=== PATIENT | female | born 2000 | race Caucasian/White ===

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

== ENCOUNTER 2022-03-18 20:22 | Emergency (ER) | payer MEDICAID ==
[~2022-03-18] VITALS: Ht 165.1 cm; Wt 100.7 kg
[2022-03-18 20:27] VITALS: TEMP 98
--- NOTE | 2022-03-18 21:15 | NUR ---
2114 25.6 WEEKS ON EFM. C/O FAINTING AT HOME. MOVEMENT HEARD AND FELT WITH ACCELS FROM BL 120'S TO 150-160. GOOD VARIABILITY. NO CONTRACTIONS.
[2022-03-18 21:30] LABS: COLLECTION METHOD CLEAN CATCH
[2022-03-18 21:32] LABS: BASO % 0.1 % (0.0-2.0); EOS # 0.1 K/mm3 (0.0-0.7); EOS % 0.5 % (0.0-4.0); GRAN # 9.8 K/mm3 (1.4-6.5); GRAN % 78.4 % (42.2-75.2); HEMOGLOBIN 12.1 g/dl (12.5-16.0); LYMPH % 15.8 % (20.0-51.0); MEAN CELL VOLUME 83 fl (80.0-100.0); MEAN CORPUSCULAR HEMOGLOBIN 29 pg (27-31); MEAN CORPUSCULAR HGB CONC 35 g/dl (33.0-37.0); MEAN PLATELET VOLUME 11.1 fl (7.4-10.4); MONO # 0.6 K/mm3 (0.1-0.6); MONO % 4.7 % (1.7-9.3); PLATELET COUNT 192 K/mm3 (130-400); RED BLOOD COUNT 4.24 M/mm3 (4.10-5.30); REDCELL DISTRIBUTION WIDTH-CV 13.2 % (11.5-14.5)
[2022-03-18 21:45] LABS: MUCOUS Present (NOT PRESENT); URINE BACTERIA Rare /hpf (NONE SEEN); URINE RBC 0-2 /hpf (0-2)
[2022-03-18 21:57] LABS: PH 6.5 (5.0-8.5); URINE APPEARANCE Clear (CLEAR/HAZY); URINE BLOOD Negative (NEGATIVE); URINE COLOR Yellow (YELLOW); URINE GLUCOSE Negative (NEGATIVE); URINE KETONE Negative (NEGATIVE); URINE NITRATE Negative (NEGATIVE); URINE PROTEIN(semi-quant) Negative (NEGATIVE); URINE UROBILINOGEN 0.2 E.U/dL (0.2-1.0)
[2022-03-18 22:12] LABS: ALANINE AMINOTRANSFERASE 6 U/L (0-55); ALBUMIN 2.7 gm/dL (3.5-5.0); ALKALINE PHOSPHATASE 83 U/L (40-150); ANION GAP 10 mmol/L (7-16); AST,SGOT 12 U/L (5-34); BILIRUBIN,TOTAL 0.2 mg/dL (0.2-1.2); BLOOD UREA NITROGEN 6 mg/dL (7-19); CALCIUM 8.8 mg/dL (8.4-10.2); CARBON DIOXIDE 21 mmol/L (22-29); CHLORIDE 107 mmol/L (98-107); CREATININE, serum 0.59 mg/dL (0.57-1.11); GLUCOSE 89 mg/dL (70-99); POTASSIUM 3.9 mmol/L (3.5-4.5); SODIUM 138 mmol/L (136-145); TOTAL PROTEIN 6.5 gm/dL (6.2-8.1)
[2022-03-18 22:32] LABS: TSH w REFLEX 1.528 uIU/mL (0.350-4.940)
[2022-03-18 22:34] LABS: TROPONIN-I < 0.010 ng/mL (0.00-0.033)
[2022-03-18] MEDS ORDERED: CEPHALEXIN500 M1 PO (23:02)
[2022-03-18 23:15] VITALS: BP 120/55; PULSE 78
== END 2022-03-18 23:19 | disposition home or self-care (01) ==
LOC: COL.ER 20:22
PROVIDERS: Emergency Medicine
DX: O23.42 Unspecified infection of urinary tract in pregnancy, second trimester (principal); N39.0 Urinary tract infection, site not specified; O99.891 Other specified diseases and conditions complicating pregnancy; R55 Syncope and collapse; Z91.040 Latex allergy status; Z87.891 Personal history of nicotine dependence; Z28.310 Unvaccinated for COVID-19; Z3A.25 25 weeks gestation of pregnancy
CPT/HCPCS: J7120

== ENCOUNTER 2022-04-09 14:48 | Outpatient (CLI) | payer MEDICAID ==
[~2022-04-09] VITALS: Ht 165.1 cm; Wt 99.5 kg
[2022-04-09] VITALS (7 sets, daily range): BP systolic 103–130; BP diastolic 56–77; PULSE 79–109
[~2022-04-09 14:48] MED LIST: CEPHALEXIN500 M1 PO
--- NOTE | 2022-04-09 15:00 | NUR ---
Pt arrived on unit ambulatory from clinic with concerns for elevated blood pressure and migraine x4 days. Pt denies any contractions, leaking of fluid or vaginal bleeding and reports normal movement. EFM and toco monitors started. Audible movement. Reviewed orders previously received from Dr. Owens for labs and oral hydration. Pt verbalized an understanding and agreed with the plan.
[2022-04-09] MEDS ORDERED: NATURAL MAGNES200 MG PO (15:22)
[2022-04-09] MEDS ORDERED: PRENATAL (15:22)
[2022-04-09] MEDS ORDERED: FIORICET 325 MG1 TA1 PO (15:22)
[2022-04-09 15:51] LABS: COLLECTION METHOD CLEAN CATCH
[2022-04-09 16:00] LABS: URINE APPEARANCE Cloudy (CLEAR/HAZY); URINE COLOR Yellow (YELLOW)
[2022-04-09 16:01] LABS: URINE BLOOD Negative (NEGATIVE); URINE GLUCOSE Negative (NEGATIVE); URINE KETONE 1+ (NEGATIVE); URINE NITRATE Negative (NEGATIVE); URINE PROTEIN(semi-quant) TRACE (NEGATIVE); URINE UROBILINOGEN 0.2 E.U/dL (0.2-1.0)
[2022-04-09 16:02] LABS: MUCOUS Present (NOT PRESENT); URINE BACTERIA Rare /hpf (NONE SEEN); URINE RBC 0-2 /hpf (0-2)
[2022-04-09 16:03] LABS: BASO % 0.1 % (0.0-2.0); EOS # 0.1 K/mm3 (0.0-0.7); EOS % 0.5 % (0.0-4.0); GRAN # 9.2 K/mm3 (1.4-6.5); GRAN % 77.2 % (42.2-75.2); MEAN CELL VOLUME 84 fl (80.0-100.0); MEAN CORPUSCULAR HEMOGLOBIN 29 pg (27-31); MEAN CORPUSCULAR HGB CONC 34 g/dl (33.0-37.0); MEAN PLATELET VOLUME 10.6 fl (7.4-10.4); MONO # 0.6 K/mm3 (0.1-0.6); MONO % 4.7 % (1.7-9.3); PLATELET COUNT 196 K/mm3 (130-400); RED BLOOD COUNT 4.15 M/mm3 (4.10-5.30); REDCELL DISTRIBUTION WIDTH-CV 13.2 % (11.5-14.5)
[2022-04-09 16:04] LABS: HEMATOCRIT 34.9 % (37.0-47.0)
[2022-04-09 16:20] LABS: ALBUMIN 2.8 gm/dL (3.5-5.0); ALKALINE PHOSPHATASE 102 U/L (40-150); ANION GAP 11 mmol/L (7-16); AST,SGOT 9 U/L (5-34); BILIRUBIN,TOTAL 0.3 mg/dL (0.2-1.2); BLOOD UREA NITROGEN 6 mg/dL (7-19); CALCIUM 8.7 mg/dL (8.4-10.2); CARBON DIOXIDE 18 mmol/L (22-29); CHLORIDE 107 mmol/L (98-107); CREATININE, serum 0.66 mg/dL (0.57-1.11); GLUCOSE 99 mg/dL (70-99); POTASSIUM 3.7 mmol/L (3.5-4.5); SODIUM 136 mmol/L (136-145); TOTAL PROTEIN 6.4 gm/dL (6.2-8.1)
[2022-04-09 16:23] LABS: ALANINE AMINOTRANSFERASE < 6 U/L (0-55)
[2022-04-09 16:26] LABS: URIC ACID 4.7 mg/dL (2.6-6.0)
--- NOTE | 2022-04-09 17:00 | NUR ---
Plan of care for discharge home reviewed with pt. Pt verbalized an understanding, agreed with the plan and states no questions or concerns at this time.
== END 2022-04-09 17:25 | disposition home or self-care (01) ==
LOC: LDRO 14:48
PROVIDERS: Obstetrics & Gynecology
DX: O13.3 Gestational [pregnancy-induced] hypertension without significant proteinuria, third trimester (principal); O26.893 Other specified pregnancy related conditions, third trimester; Z3A.29 29 weeks gestation of pregnancy

== ENCOUNTER 2022-06-02 17:43 | Outpatient (CLI) | payer MEDICAID ==
[~2022-06-02] VITALS: Ht 162.6 cm; Wt 100.9 kg
--- NOTE | 2022-06-02 16:50 | NUR ---
PT AMBULATORY TO LR4. CHANGED INTO CLEAN GOWN. FHR MONITOR/TOCO APPLIED. PT COMPLAINING OF LEAKING OF FLUID. PT REPORTS GOOD MOVEMENT, NO VAGINAL BLEEDING, AND NO REGULAR CONTRACTIONS. 171 SVE /-3. AMNIOSURE DONE AT THIS TIME.
[2022-06-02 17:30] VITALS: BP 136/78; PULSE 116; TEMP 97.5
[~2022-06-02 17:43] MED LIST changes: +FIORICET 325 MG1 TA1 PO; +NATURAL MAGNES200 MG PO; +PRENATAL; +PROTONIX20 MG PO; +ZOFRAN 4MG T4 MG/TAB PO
[2022-06-02 17:55] VITALS: BP 138/77; PULSE 83
--- NOTE | 2022-06-02 18:06 | NUR ---
DR BURROUGHS AT NURSES STATION WHOLE TIME PT IS ON UNIT. DR BURROUGHS GIVING VERBAL ORDERS
== END 2022-06-02 18:05 | disposition home or self-care (01) ==
LOC: LDRO 17:43
DX: Z34.93 Encounter for supervision of normal pregnancy, unspecified, third trimester (principal); Z3A.36 36 weeks gestation of pregnancy

== ENCOUNTER 2022-06-04 19:34 | Outpatient (CLI) | payer MEDICAID ==
[~2022-06-04] VITALS: Ht 165.1 cm; Wt 101.4 kg
--- NOTE | 2022-06-04 19:45 | NUR ---
1944- PT PRESENTS TO R AMBULATORY COMPLAINING OF INCREASED BLOOD PRESSURES AT HOME. CHANGED INTO GOWN. 1951- EFM X2 APPLIED. PT DENIES LEAKING AMNIOTIC FLUID OR VAGINAL BLEEDING. PT IS FEELING BABY MOVE. STATES SHE HAS BEEN CRAMPING AND WOULD LIKE HER CERVIX EXAMINED BUT NO CONSISTENT CONTRACTIONS. PLAN OF CARE FOR LABOR AND BLOOD PRESSURE CHECK DISCUSSED AND PT VERBALIZES UNDERSTANDING. 1999- SVE BY THIS NURSE 0-/-3 WITH NO POOLING, BLEEDING, OR DISCHARGE. 2004- NURSING ADMISSION HISTORY AND ASSESSMENT COMPLETED. 2026- PT UP TO BATHROOM AND PROVIDES URINE SAMPLE. 2030- DR JAIMES CALLED CHARTED AND ORDERS RECEIVED. 2034- PT BACK TO BED AND ON MONITORS. PLAN OF CARE DISCUSSED AND QUESTIONS ANSWERED. 2054- AND MATERNAL HEART TONES VERIFIED WITH MATERNAL PULSE OX. 2110- EFM REMOVED FOR DISMISSAL. 2126- DISCHARGE INSTRUCTIONS GIVEN AND PT VERBALIZES UNDERSTANDING. PT SIGNS PAPERWORK. PT DISMISSED TO HOME BY HER SELF, AMBULATORY.
[2022-06-04 20:00] VITALS: BP 131/76; PULSE 90; TEMP 98.6
[2022-06-04 20:30] VITALS: BP 131/66; PULSE 72
[2022-06-04 21:10] VITALS: BP 126/76; PULSE 66
== END 2022-06-04 21:27 | disposition home or self-care (01) ==
LOC: LDRO 19:34
DX: O26.893 Other specified pregnancy related conditions, third trimester (principal); R03.0 Elevated blood-pressure reading, without diagnosis of hypertension; Z3A.37 37 weeks gestation of pregnancy